=== PATIENT | female | born 1950 | race African-American/Black ===

== ENCOUNTER 2024-06-02 16:35 | Emergency (ER) | payer MEDICARE, MEDICAID ==
[~2024-06-02] VITALS: Ht 160 cm; Wt 53.0 kg
[~2024-06-02 16:35] MED LIST: ACET250T3 MT; ALBU4TAB6 PO; ASPI-1497 PO; BRIM5DRO6 LEFTEYE; CYCL10TA21 PO; DILT360T13 MT; DIPH50CA38 PO; EPIN0.3A3 IM; FAMO20TA8 PO; FLUT15.844 BOTHNSTRLS; ISOS30TA91 PO; LEVO100T9 PO; LIP40 PO; LORA10CA PO; RANO10005 PO; TRAM50TA3 MT
[2024-06-02 16:36] VITALS: O2SAT 99
[2024-06-02 17:28] LABS: DIFFERENTIAL COMMENT 1; HEMATOCRIT. 34.7 % (36.0-48.0); HEMOGLOBIN. 11.2 g/dL (12.0-16.0); MEAN CORPUSCULAR HEMOGLOBIN 27.7 pg (28.0-32.0); MEAN CORPUSCULAR HGB CONC 32.3 g/dL (31.0-37.0); MEAN CORPUSCULAR VOLUME 85.7 fL (81.0-99.0); MEAN PLATELET VOLUME 8.9 fl (7.4-10.4); PLATELET 245 x1000/uL (130-400); RED BLOOD CELL COUNT 4.05 mill/uL (4.2-5.4); RED CELL DISTRIBUTION WIDTH 18.6 % (11.6-14.6)
[2024-06-02 17:36] LABS: CHLORIDE 110 mEq/L (98-107); POTASSIUM 3.1 mEq/L (3.5-5.1); SODIUM 140 mEq/L (136-145)
[2024-06-02 17:37] LABS: CALCIUM 9.1 mg/dL (8.7-10.4); CARBON DIOXIDE 23 mEq/L (21-32)
[2024-06-02 17:42] LABS: GLUCOSE 166 mg/dL (70-105); TROPONIN I HIGH SENSITIVITY 6 ng/L (3.0-34); UREA NITROGEN BLOOD 11 mg/dL (9-23)
[2024-06-02 17:44] LABS: ALANINE AMINOTRANSFERASE 12 IU/L (10-49); ALBUMIN 4.2 g/dL (3.2-4.8); ASPARTATE AMINOTRANSFERASE 17 IU/L (<34); BILIRUBIN DIRECT 0.2 mg/dL (<=3.0); BILIRUBIN TOTAL 0.4 mg/dL (0.1-1.0); CREATINE KINASE 34 IU/L (34-145)
[2024-06-02 17:46] LABS: ANISOCYTOSIS 1+; PLATELET ESTIMATE NORMAL
[2024-06-02 17:58] LABS: ETHANOL BLOOD < 10 mg/dL (<10)
[2024-06-02] MEDS: SODIUM CHLORIDE 0.9% 1,000 ML IV ONE (18:25)
[2024-06-02] MEDS: POTASSIUM CHLORIDE 20MEQ/PACKET PO NR (18:31)
[2024-06-02 22:54] VITALS: BP 131/76; PULSE 99; RESP 17; TEMP 98.6
== END 2024-06-02 22:55 | disposition home or self-care (01) ==
LOC: ER 16:35
DX: R00.2 Palpitations (principal); I25.2 Old myocardial infarction; Z86.73 Personal history of transient ischemic attack (TIA), and cerebral infarction without residual deficits; Z79.899 Other long term (current) drug therapy
CPT/HCPCS: 80076; 80048; 80320; 82550; 85025; 84484; 36415; 71045; 93005; 96360; 99285; J7030; G0480

== ENCOUNTER 2024-12-25 19:09 | Emergency (ER) | payer MEDICARE, MEDICAID ==
[~2024-12-25] VITALS: Ht 162.6 cm; Wt 56.0 kg
[~2024-12-25 19:09] MED LIST changes: +ACET250T29 MT; -ACET250T3 MT
[2024-12-25 19:28] VITALS: BP 132/62; PULSE 83; RESP 1; TEMP 36.8; O2SAT 97
[2024-12-25] MEDS ORDERED: TETANUS, DIPHTHERIA, PERTUSSIS VAC/PF 0.5ML (>10YR OLD) IM ONE (19:45)
== END 2024-12-25 21:21 | disposition left against medical advice (07) ==
LOC: ER 19:09
DX: S61.211A Laceration without foreign body of left index finger without damage to nail, initial encounter (principal); E11.9 Type 2 diabetes mellitus without complications; I10 Essential (primary) hypertension; I25.2 Old myocardial infarction; Z79.01 Long term (current) use of anticoagulants; Z79.899 Other long term (current) drug therapy; Z88.5 Allergy status to narcotic agent; Z88.8 Allergy status to other drugs, medicaments and biological substances; X58.XXXA Exposure to other specified factors, initial encounter; Y93.89 Activity, other specified; Y92.89 Other specified places as the place of occurrence of the external cause; Y99.8 Other external cause status
CPT/HCPCS: 99283

== ENCOUNTER 2024-12-27 11:21 | Emergency (ER) | payer MEDICARE, MEDICAID ==
[~2024-12-27] VITALS: Ht 157.5 cm; Wt 50.0 kg
[2024-12-27 11:37] VITALS: BP 124/86; PULSE 110; RESP 16; TEMP 36.8; O2SAT 100
[2024-12-27] MEDS: TETANUS, DIPHTHERIA, PERTUSSIS VAC/PF 0.5ML (>10YR OLD) IM ONE (14:13)
== END 2024-12-27 15:07 | disposition left against medical advice (07) ==
LOC: ER 11:21
DX: S61.211A Laceration without foreign body of left index finger without damage to nail, initial encounter (principal); E11.9 Type 2 diabetes mellitus without complications; Z79.899 Other long term (current) drug therapy; I10 Essential (primary) hypertension; I25.2 Old myocardial infarction; Z88.5 Allergy status to narcotic agent; Z98.890 Other specified postprocedural states; X58.XXXA Exposure to other specified factors, initial encounter; Y93.89 Activity, other specified; Y92.89 Other specified places as the place of occurrence of the external cause; Y99.8 Other external cause status
CPT/HCPCS: 90471; 90715; 99283